=== PATIENT | female | born 1990 | race Caucasian/White ===

== ENCOUNTER 2018-04-16 08:00 | Inpatient (IN) | payer BC ==
[2018-04-15 17:32] VITALS: BMI 49.4
[2018-04-16] MEDS ORDERED: BUPIVACAINE HCL/PF 0.5% (5MG/ML) 10 ML VIAL ONE (14:15)
--- NOTE | 2018-04-16 15:18 | HP ---
DATE OF ADMISSION: 04/16/2018 CHIEF COMPLAINT: Morbid obesity. HISTORY OF PRESENT ILLNESS: The patient is a 28-year-old woman with history of morbid obesity for many years despite multiple attempts at dietary weight loss. She received Pulmonary, Nutrition, Psychological evaluation clearance prior to undergoing elective bariatric surgery. PAST MEDICAL HISTORY: The past medical history is significant for plantar fasciitis, fibromyalgia, and lower back pain. PAST SURGICAL HISTORY: Negative. MEDICATIONS: Patient takes no medication, except for occasional anti-inflammatories, which she has been off for 1 month. ALLERGIES: The patient has allergies to CECLOR, BACTRIM and PENICILLIN. REVIEW OF SYMPTOMS: Cardiovascular: Within normal limits. Pulmonary: Within normal limits. Gastrointestinal: Within normal limits. Musculoskeletal: Within normal limits, except for occasional low back pain. Neurologic: Within normal limits. PHYSICAL EXAMINATION: General: A 28-year-old woman awake, alert, in no acute distress. HEENT: No masses palpated. Lungs: Are clear bilaterally. Heart: Regular sinus rhythm. Abdomen: Is noted for obesity, but soft, nontender on palpation. Extremities: No swelling, no edema noted. IMPRESSION: Morbid obesity. PLAN: Bring to the OR for laparoscopic vertical sleeve gastrectomy, possible open vertical sleeve gastrectomy. Bebe [id number]
[2018-04-16] MEDS ORDERED: ONDANSETRON 4 MG/2 ML VIAL IVPUSH PRN (16:24)
--- NOTE | 2018-04-16 16:33 | OP ---
Operative Note - Note: Operative Date: 04/16/18 Pre-Operative Diagnosis: Morbid Obesity Operation: Laparoscopic Vertical Sleeve Gastrectomy. Diagnostic Laparoscopy Findings: Greater curve sleeve gastrectomy performed with #[address] Post-Operative Diagnosis: Same as Pre-op Surgeon: Rodrick Weems Director Trading: Pk Galicia Anesthesia: General Specimens Removed: Greater curve of stomach Estimated Blood Loss (mls): 30 Operative Report Dictated: Yes
--- NOTE | 2018-04-16 16:44 | SURG ---
Surgery Enamel Applier Note Enamel Applier: Pk Galicia PA-C Date of Service: 04/16/18 Diagnosis: Morbid obesity due to excess calories Procedure: Laproscopic sleeve gastrectomy I was present for the entirety of the operative procedure. For further detail, please refer to operative report.
[2018-04-16] MEDS ORDERED: SODIUM CHLORIDE 1,000 ML IV SCH (16:45)
[2018-04-16] MEDS ORDERED: ONDANSETRON 4 MG/2 ML VIAL ONE (16:48)
[2018-04-16] MEDS ORDERED: METOCLOPRAMIDE HCL INJECTION 10 MG/2 ML VIAL ONE (16:48)
[2018-04-16] MEDS: METOCLOPRAMIDE HCL INJECTION 10 MG/2 ML VIAL IVPUSH SCH ×2 (16:55→21:09)
[2018-04-16 17:10] LABS: HEMATOCRIT 37.3 % (32.4-45.2); HEMOGLOBIN 13.1 GM/dL (10.7-15.3); MCH 30.1 pg (25.7-33.7); MCHC 35.2 g/dl (32.0-36.0); MEAN CELL VOLUME 85.7 fl (80-96); MEAN PLT VOLUME 9.7 fl (7.5-11.1); PLATELET COUNT 143 K/MM3 (134-434); RBC 4.36 M/mm3 (3.60-5.2); RDW 12.8 % (11.6-15.6)
--- NOTE | 2018-04-16 17:38 | OP ---
DATE OF OPERATION: 04/16/2018 PREOPERATIVE DIAGNOSIS: Morbid obesity. POSTOPERATIVE DIAGNOSIS: Morbid obesity. PROCEDURE PERFORMED: 1. Laparoscopic vertical sleeve gastrectomy. 2. Diagnostic laparoscopy. OPERATING SURGEON: Rodrick Weems M.D. LIGHT TECHNICIAN: Kevin Pretty ANESTHESIA: General. OPERATIVE PROCEDURE: The patient was brought into the operating room, placed on the OR table in the supine position. All precautions were taken initially including padding for the back and the feet, and Venodyne boots were placed on both lower extremities. At that point, the abdomen was prepped and draped in the usual manner. A Veress needle was placed in the left upper quadrant, and a pneumoperitoneum was established. A number 12 bladeless trocar was placed in the left upper quadrant and through the trocar, laparoscopic camera was placed. Under direct vision, a number 15 bladeless trocar was placed in the midline in the supraumbilical position followed by a number 5 bladeless trocar in the right upper quadrant and number 5 bladeless trocar below the left costal margin. A Ju liver retractor was then placed in the epigastrium to retract the left lobe of the liver. The patient was then placed in 20-degree reverse Trendelenburg position by anesthesia. At that point, the pylorus was noted on the distal stomach, and from this point, 6 cm were measured proximally. Here, the operating surgeon lifted the stomach toward the anterior abdominal wall, as the per diem physical therapist assistant surgeon retracted the gastrocolic ligament inferiorly. The Ligasure device was used to dissect the gastrocolic ligament off the greater curve of the stomach. This continued in a superior and vertical direction as the per diem physical therapist assistant retracted the short gastric vessels laterally, and the operating surgeon retracted the stomach toward the patient's right side. This continued with the LigaSure until the final short gastric vessel between the superior pole of the spleen and the proximal fundus was divided. At this juncture, anesthesia inserted a number 40 bougie. With the bougie held along the lesser curvature, a series of lin were performed with the first 2 being black load lin 6 cm in length along the bougie. This was followed by a series of purple load lin also 6 cm in length and also along the bougie. This continued until the final staple was fired in the left upper quadrant and the greater curve was now completely detached from the lesser curve. It should be noted that prior to firing lin, both the anterior and posterior tucker were checked that they were equal and in the area of esophagogastric junction approximately 1 to 1.5 cm serosa remained on the anterior and posterior surfaces. At this juncture, saline was placed around the staple line, anesthesia inserted air in the bougie to a pressure of 35 mm. This was done, and it showed no signs of obstruction all the way down to the pylorus, and also it showed that there were no leaks noted from the staple line. At this juncture, anesthesia removed the air from the staple line, and then the bougie was removed through anesthesia through the patient's mouth. At this point, the resected greater curve was now removed through the number 15 trocar sites, handed off the field as specimen to pathology. Under direct vision a number 15 and number 12 trocar sites were closed with Endo closure device to prevent internal hernia and prevent bleeding. Under direct vision, all trocars were removed and pneumoperitoneum released. All trocar sites received 0.25% Marcaine, were closed with 4-0 Biosyn subcuticular fashion. The midline number 15 trocar was first closed with 3-0 Vicryl in the subcutaneous tissue followed by 4-0 Biosyn subcuticular fashion. Dressings were applied, and patient awoken from anesthesia and transferred out of the operation room to the recovery room in stable condition. ANESTHESIA ON THE CASE: General. SURGEON: Rodrick Weems M.D. LIGHT TECHNICIAN: Kevin Pretty ESTIMATED BLOOD LOSS: 30 mL. DISPOSITION: Patient transferred to recovery room in stable condition. Bebe [id number]
[2018-04-16 17:56] LABS: ALBUMIN 3.2 g/dl (3.4-5.0); ALK PHOS 94 U/L (45-117); BILIRUBIN,TOTAL 0.3 mg/dL (0.2-1); BLOOD UREA NITROGEN 12 mg/dL (7-18); CHLORIDE 106 mmol/L (98-107); CREATININE 0.7 mg/dL (0.55-1.3); GLUCOSE,RANDOM 126 mg/dL (74-106); POTASSIUM 3.9 mmol/L (3.5-5.1); SGOT/AST 31 U/L (15-37); SGPT/ALT 34 U/L (13-61); SODIUM 138 mmol/L (136-145); TOT PROT 6.2 g/dl (6.4-8.2)
[2018-04-16 17:57] LABS: ANION GAP 9 MMOL/L (8-16); CO2 24 mmol/L (21-32)
[2018-04-16] MEDS: MORPHINE SULFATE 2 MG/ML VIAL IVPUSH PRN ×2 (19:45→22:57)
[2018-04-16] MEDS: ENOXAPARIN NA (PORCINE) 40 MG/0.4 ML DISP.SYRIN SQ SCH (21:09)
[2018-04-16] MEDS: FAMOTIDINE 20 MG/50 ML IVPB 20 MG/50 ML MG IVPB SCH (22:06)
[2018-04-17] MEDS: MORPHINE SULFATE 2 MG/ML VIAL IVPUSH PRN ×5 (01:50→14:35)
[2018-04-17] MEDS: METOCLOPRAMIDE HCL INJECTION 10 MG/2 ML VIAL IVPUSH SCH ×3 (02:24→14:08)
[2018-04-17 07:57] LABS: HEMATOCRIT 41.3 % (32.4-45.2); HEMOGLOBIN 13.4 GM/dL (10.7-15.3); MCH 28.1 pg (25.7-33.7); MCHC 32.5 g/dl (32.0-36.0); MEAN CELL VOLUME 86.4 fl (80-96); MEAN PLT VOLUME 10.2 fl (7.5-11.1); PLATELET COUNT 164 K/MM3 (134-434); RBC 4.78 M/mm3 (3.60-5.2); WHITE BLOOD COUNT 10.4 K/mm3 (4.0-10.0)
[2018-04-17 08:47] LABS: ALBUMIN 3.6 g/dl (3.4-5.0); ALK PHOS 102 U/L (45-117); ANION GAP 9 MMOL/L (8-16); BILIRUBIN,TOTAL 0.5 mg/dL (0.2-1); BLOOD UREA NITROGEN 7 mg/dL (7-18); CALCIUM 8.3 mg/dL (8.5-10.1); CHLORIDE 107 mmol/L (98-107); CO2 22 mmol/L (21-32); CREATININE 0.6 mg/dL (0.55-1.3); GLUCOSE,RANDOM 87 mg/dL (74-106); POTASSIUM 4.1 mmol/L (3.5-5.1); SGOT/AST 28 U/L (15-37); SGPT/ALT 33 U/L (13-61); SODIUM 138 mmol/L (136-145); TOT PROT 6.6 g/dl (6.4-8.2)
[2018-04-17] MEDS: FAMOTIDINE 20 MG/50 ML IVPB 20 MG/50 ML MG IVPB SCH (10:21)
[2018-04-17] MEDS: ENOXAPARIN NA (PORCINE) 40 MG/0.4 ML DISP.SYRIN SQ SCH (10:22)
[2018-04-17] MEDS ORDERED: FLU VACCINE QUAD 60 MCG/0.5 ML (MDV 18-19) IM ONE (11:00)
[2018-04-17] MEDS ORDERED: oxyCODONE HCL 5 MG TABLET PO PRN (14:43)
[2018-04-17] MEDS ORDERED: ACETAMINOPHEN 325 MG TABLET (FP) PO PRN (14:43)
[2018-04-17] MEDS ORDERED: SODIUM CHLORIDE 1,000 ML IV SCH (14:45)
--- NOTE | 2018-04-17 16:56 | PN ---
Progress Note (short form) - Note Progress Note: POD#1 Afebrile;VSS Pt doing well No N/V Was OOB in chair X3 Tolerating PO clear liquids- 2 oz PO TID P/E-Abd- all incisions clean, dry WBC-10.4 H/H-13.4/41.3 UGI- no leak, no obstruction P- D/C home today (instructions given verbally to pt and her father at bedside) PO clear liquids- 2 oz PO 4-5 X per day F/U in 5 days
[2018-04-17 17:28] VITALS: BP 105/65; PULSE 58; TEMP 99
--- NOTE | 2018-04-21 11:12 | PATH ---
Surgical Pathology Report Patient Name: AAKASH VASQUES [facility]. Rec. #: [id number] /Age/Gender: 1990 (Age: 28) / F Account: [id number] Location: 4 W TELEMETRY U Taken: 04/16/2018 Received: 04/19/2018 Reported: 04/21/2018 Physicians: Rodrick Weems M.D. Specimen(s) Received GREATER CURVATURE STOMACH Clinical History Morbid obesity Final Diagnosis STOMACH, GREATER CURVATURE, LAPAROSCOPIC VERTICAL SLEEVE GASTRECTOMY: PORTION OF STOMACH WITH MILD CHRONIC GASTRITIS. IMMUNOHISTOCHEMICAL STAIN FOR H. PYLORI IS NEGATIVE. Electronically Signed Candis Mccollum M.D. Gross Description Received in formalin, labeled "greater curvature of stomach," is a 77 gram, 14.0 x 4.0 x 2.4 cm. portion of stomach with a stapled margin of resection. The serosa is altman-pino with minimal attached fat. The mucosa is altman-pink with normal folds. No mucosal masses are identified. Shear Tender sections are submitted in one cassette. 04/19/2018 [facility]04/19/2018
== END 2018-04-17 17:38 | disposition home or self-care (01) | DRG 621 ==
LOC: JSAMEDAYSX 13:01 → J4W 18:19
PROVIDERS: ADMIT Surgery; ATTEND Surgery
PROC: 0DB64Z3 Excision of Stomach, Percutaneous Endoscopic Approach, Vertical (ICD-10-PCS; principal; 2018-04-16 14:30)
DX: E66.01 Morbid (severe) obesity due to excess calories (principal); Z68.42 Body mass index [BMI] 45.0-49.9, adult; M79.7 Fibromyalgia; M54.5 Low back pain; Z88.0 Allergy status to penicillin
CPT/HCPCS: 36415; 71046-TC-FY; 74241-TC-FY; 80053; 85027; 88307-TC; 94760; J7030